=== PATIENT | male | born 1990 | race Caucasian/White ===

== ENCOUNTER 2017-07-01 02:56 | Emergency (ER) | payer BC ==
[2017-07-01 03:04] VITALS: BP 108/42
[2017-07-01] MEDS ORDERED: Lidocaine 2% EPI 1:200000 MPF* 20 ML VIAL ONE (03:17)
--- NOTE | 2017-07-01 03:55 | ED ---
Livier Henao Alfonso, scribed for Neetu Jerez MD on 07/01/17 at 0317 . Laceration/Wound HPI - HPI Summary HPI Summary: This patient is a 26 year old M presenting to [facility] with a chief complaint of a right foot laceration which occurred earlier today. He reports I kicked a glass door, and ambulates to the room with a pressure dressing in place. Pt states he is up to date on tetanus. The patient rates the pain 3/10 in severity. Symptoms aggravated and alleviated by nothing. Patient reports ETOH use (3 drinks). - History of Current Complaint Stated Complaint: RIGHT FOOT LACS Time Seen by Provider: 07/01/17 03:10 Hx Obtained From: Patient Mechanism of Injury: Sharp/Blunt Trauma Onset/Duration: Sudden Onset, Lasting Hours, Still Present Aggravating: Nothing Alleviating: Nothing Timing: Constant Current Severity: Mild Pain Intensity: 3 Pain Scale Used: 0-10 Numeric Related Hx: Other - ETOH use - Allergy/Home Medications Allergies/Adverse Reactions: Allergies Allergy/AdvReac Type Severity Reaction Status Date / Time No Known Allergies Allergy Verified 07/01/17 03:04 PMH/Surg Hx/FS Hx/Imm Hx Opthamlomology History: Denies: Hx Legally Blind EENT History: Denies: Hx Deafness Infectious Disease History: No Infectious Disease History: Denies: Traveled Outside the [place] in Last 30 Days - Family History Known Family History: Positive: Diabetes, Other - Cancer - Social History Alcohol Use: Occasionally Hx Substance Use: Yes Substance Use Type: Reports: Other Substance Use Comment - Amount & Last Used: MXE Hx Tobacco Use: No Smoking Status (MU): Unknown if Ever Smoked Review of Systems Negative: Fever Positive: Other - Right foot laceration Neurological: Other - ETOH use All Other Systems Reviewed And Are Negative: Yes Physical Exam - Summary Physical Exam Summary: VITAL SIGNS: Reviewed. GENERAL: Patient is a well-developed and nourished male who is lying comfortable in the stretcher. Patient is not in any acute respiratory distress. HEAD AND FACE: No signs of trauma. No ecchymosis, hematomas or skull depressions. No sinus tenderness. EYES: PERRLA, EOMI x 2, No injected conjunctiva, no nystagmus. EARS: Hearing grossly intact. Ear canals and tympanic membranes are within normal limits. MOUTH: Oropharynx within normal limits. NECK: Supple, trachea is midline, no adenopathy, no JVD, no carotid bruit, no c- spine tenderness, neck with full ROM. CHEST: Symmetric, no tenderness at palpation LUNGS: Clear to auscultation bilaterally. No wheezing or crackles. CVS: Regular rate and rhythm, S1 and S2 present, no murmurs or gallops appreciated. ABDOMEN: Soft, non-tender. No signs of distention. No rebound no guarding, and no masses palpated. Bowel sounds are normal. EXTREMITIES: FROM in all major joints, no edema, no cyanosis or clubbing. NEURO: Alert and oriented x 3. No acute neurological deficits. Speech is normal and follows commands. SKIN: Dry and warm. 3 cm laceration to medial aspect of the right foot. See lac repair note. Triage Information Reviewed: Yes Vital Signs On Initial Exam: Initial Vitals Temp Pulse Resp BP Pulse Ox 98.6 F 98 16 108/42 97 07/01/17 02:59 07/01/17 02:59 07/01/17 02:59 07/01/17 02:59 07/01/17 02:59 Vital Signs Reviewed: Yes Procedures - Laceration/Wound Repair 1 Location: Other - Right foot Description: Linear Anesthesia: 2.0%, Lido - 3 cc, Epi Irrigated w/ Saline (ccs): 100 Laceration/Wound Explored: clean Closure: Single Layer Suture Type: Other - 3-0 Polypropylene Number of Sutures: 5 - Good alignment and hemostasis Layer Closure?: No Diagnostics - Vital Signs Vital Signs Temp Pulse Resp BP Pulse Ox 07/01/17 02:59 98.6 F 98 16 108/42 97 - Laboratory Lab Statement: Any lab studies that have been ordered have been reviewed, and results considered in the medical decision making process. Laceration Repair Course/Dx - Course Assessment/Plan: This patient is a 26 year old M presenting to [facility] with a chief complaint of a right foot laceration which occurred earlier today. He reports I kicked a glass door, and ambulates to the room with a pressure dressing in place. Pt states he is up to date on tetanus. The patient rates the pain 3/10 in severity. Symptoms aggravated and alleviated by nothing. Patient reports ETOH use (3 drinks). In the ED course the laceration was repaired as described in the procedure note. Patient will be discharged with follow up from PCP. The patient is agreeable with this plan. - Clinical Impression Provider Diagnoses: Laceration of right foot Discharge - Discharge Plan Condition: Stable Disposition: HOME Patient Education Materials: Laceration (ED), Care For Your Stitches (ED) The documentation as recorded by the Livier soria Alfonso accurately reflects the service I personally performed and the decisions made by , Neetu Jerez MD.
== END 2017-07-01 04:16 | disposition home or self-care (01) ==
LOC: ED 02:56
DX: S91.311A Laceration without foreign body, right foot, initial encounter (principal); W25.XXXA Contact with sharp glass, initial encounter; Y92.9 Unspecified place or not applicable
CPT/HCPCS: 12001; 99282

== ENCOUNTER 2017-07-02 13:12 | Emergency (ER) | payer BC ==
[2017-07-02] MEDS ORDERED: Tetan/Diph/Pertus SYR(Tdap)* 0.5 ML SYR(BOOSTRIX) use SYR IM ONE (13:58)
--- NOTE | 2017-07-02 14:55 | RAD ---
INDICATION: Laceration to medial right foot after kicking a glass door COMPARISON: None. TECHNIQUE: 3 views of the right foot were obtained. FINDINGS: The adequately corticated bones are properly aligned. Joint spaces appear maintained. No fracture, dislocation or focal bony abnormality is seen. No radiopaque subcutaneous foreign bodies are visualized. IMPRESSION: NORMAL RIGHT FOOT X-RAY. NO RADIOPAQUE SUBCUTANEOUS FOREIGN BODY IS IDENTIFIED. If the patient's symptoms persist, follow-up imaging is recommended.
[2017-07-02] MEDS ORDERED: Ibuprofen TAB* 800 MG PO ONE ×2 (14:56→14:59)
--- NOTE | 2017-07-02 15:04 | ED ---
Lower Extremity - HPI Summary HPI Summary: Pt here w/ Rt foot pain, swelling, bruising s/p kicking his foot through a glass door last night. He was wearing shoes however glass caught him proximal to the inside ankle of the shoe's border - did not go through the sole of the shoe. Admits he was intoxicated and has been feeling the effects of ETOH until today. Did go to [facility] last night and had sutures placed. He told provider his tetanus was UTD however today realized it is not - here for booster. Upon reviewing chart, it also appears he did not have an XR - again, foot is swollen and bruised here today and he's been bearing weight, not elevating and no ice - will order image. Denies numbness, tingling, weakness. Has been able to bear weight on his toes/MT arch. - History of Current Complaint Chief Complaint: EDExtremityLower Stated Complaint: NEEDS tetanus/FOOT BANDAGE CHANGED Time Seen by Provider: 07/02/17 13:55 Hx Obtained From: Patient Pain Intensity: 4 - Allergies/Home Medications Allergies/Adverse Reactions: Allergies Allergy/AdvReac Type Severity Reaction Status Date / Time No Known Allergies Allergy Verified 07/01/17 03:04 PMH/Surg Hx/FS Hx/Imm Hx Previously Healthy: Yes Endocrine/Hematology History: Denies: Hx Anticoagulant Therapy, Hx Blood Disorders Sensory History: Denies: Hx Legally Blind, Hx Deafness Opthamlomology History: Denies: Hx Legally Blind - Immunization History Date of Tetanus Vaccine: 06/15/2014 Infectious Disease History: Yes Infectious Disease History: Denies: Traveled Outside the [place] in Last 30 Days - Family History Known Family History: Positive: Diabetes, Other - Cancer - Social History Alcohol Use: Occasionally Hx Substance Use: Yes Substance Use Type: Reports: Other Substance Use Comment - Amount & Last Used: MXE Hx Tobacco Use: No Review of Systems Gastrointestinal: Negative Positive: no symptoms reported Positive: Arthralgia, Myalgia, Edema Positive: Bruising Neurological: Negative Psychological: Normal All Other Systems Reviewed And Are Negative: Yes Physical Exam Triage Information Reviewed: Yes Vital Signs On Initial Exam: Initial Vitals Temp Pulse Resp BP Pulse Ox 99.3 F 97 19 126/65 98 07/02/17 13:16 07/02/17 13:16 07/02/17 13:16 07/02/17 13:16 07/02/17 13:16 Vital Signs Reviewed: Yes Appearance: Positive: Well-Appearing, No Pain Distress, Well-Nourished Skin: Positive: Warm, Dry - ecchymosis over Rt foot (see below); lac is well approximated w/ sutures in place - no drainage, no fever to touch - appears clean upon unwrapping from dressing placed last night. Head/Face: Positive: Normal Head/Face Inspection Eyes: Positive: EOMI, JAGDISH, Other: - Rt eye with what appears to be subconjunctival hemorrhage - vision intact ENT: Positive: Hearing grossly normal Respiratory/Lung Sounds: Positive: Breath Sounds Present Cardiovascular: Positive: Pulses are Symmetrical in both Upper and Lower Extremities Musculoskeletal: Positive: Strength/ROM Intact, Pain @ - ecchymosis, edema about the Rt plantar surface, heel instep; no gross deformity of bones; lac as above Neurological: Positive: Normal, Sensory/Motor Intact, Alert, Oriented to Person Place, Time, CN Intact II-III Psychiatric: Positive: Normal Procedures - Procedure Summary Procedure Summary: Wound unwrapped, lac repair assessed - cleaned and triple anbx reapplied - redressed. Pt tolerated well. Diagnostics - Vital Signs Vital Signs Temp Pulse Resp BP Pulse Ox 07/02/17 13:16 99.3 F 97 19 126/65 98 - Laboratory Diagnostic Studies Comment: Rt foot XR w/o acute findings/retained FB per radiology report and review of image. Lab Statement: Any lab studies that have been ordered have been reviewed, and results considered in the medical decision making process. Lower Extremity Course/Dx - Diagnoses Provider Diagnoses: Contusion of right foot, Dressing change Discharge - Discharge Plan Condition: Stable Disposition: HOME Patient Education Materials: Foot Contusion (ED), Care For Your Stitches (ED), Diphtheria/Acellular Pertussis/Tetanus Vaccine (By injection) Referrals: [facility] [place] [facility] [place]Outside] Additional Instructions: Rest, ice, elevate and non-weight bearing until sutures are removed by PCP. Call to schedule wound check and suture removal per previous provider's note. You may take ibuprofen with food alternating with acetaminophen for pain. *If you develop signs or symptoms infection or numbness, weakness in foot, seek medical attention or return to ED
[2017-07-02 15:29] VITALS: BP 99/53
== END 2017-07-02 15:29 | disposition home or self-care (01) ==
LOC: ED 13:12
DX: S90.31XA Contusion of right foot, initial encounter (principal); S91.301A Unspecified open wound, right foot, initial encounter; M79.671 Pain in right foot; W22.8XXA Striking against or struck by other objects, initial encounter; Y93.9 Activity, unspecified; Y92.9 Unspecified place or not applicable
CPT/HCPCS: 90471; 90715; 99282; A9270-GY